=== PATIENT | male | born 1990 | race Two or more races ===

== ENCOUNTER 2016-07-08 06:12 | Emergency (ER) | payer MEDICAID ==
[~2016-07-08] VITALS: Ht 182.9 cm; Wt 86.2 kg
[2016-07-08 06:16] VITALS: BP 108/68
[2016-07-08] MEDS ORDERED: KETOROLAC TROMETH 60MG/2ML VIAL IM ONE (07:30)
== END 2016-07-08 07:40 | disposition home or self-care (01) ==
LOC: ER 06:13
DX: S83.8X1A Sprain of other specified parts of right knee, initial encounter (principal); T25.231A Burn of second degree of right toe(s) (nail), initial encounter; F17.210 Nicotine dependence, cigarettes, uncomplicated; F12.10 Cannabis abuse, uncomplicated; F15.10 Other stimulant abuse, uncomplicated; Z59.0 Homelessness; X58.XXXA Exposure to other specified factors, initial encounter; Y93.89 Activity, other specified; Y99.8 Other external cause status; Y92.89 Other specified places as the place of occurrence of the external cause
CPT/HCPCS: 96372; 99283; J1885

== ENCOUNTER 2016-09-21 09:11 | Emergency (ER) | payer MEDICAID ==
[~2016-09-21] VITALS: Ht 182.9 cm; Wt 77.1 kg
[2016-09-21 09:16] VITALS: BP 134/76
== END 2016-09-21 10:52 | disposition home or self-care (01) ==
LOC: ER 09:11
DX: S90.111A Contusion of right great toe without damage to nail, initial encounter (principal); F12.10 Cannabis abuse, uncomplicated; F15.10 Other stimulant abuse, uncomplicated; F17.210 Nicotine dependence, cigarettes, uncomplicated; Z59.0 Homelessness; X58.XXXA Exposure to other specified factors, initial encounter; Y93.89 Activity, other specified; Y99.8 Other external cause status; Y92.89 Other specified places as the place of occurrence of the external cause

== ENCOUNTER 2016-10-25 03:05 | Emergency (ER) | payer MEDICAID ==
[~2016-10-25] VITALS: Ht 182.9 cm; Wt 81.6 kg
[2016-10-25 07:51] LABS: Basophils # (auto) 0 uL; Basophils % (auto) 0.5 % (0.0-2.0); CONDITION Y; Eosinophils # (auto) 0 uL; Eosinophils % (auto) 0.3 % (0.0-7.0); Hematocrit 40.2 % (41.0-53.0); Hemoglobin 14.1 g/dL (13.5-17.5); Lymphocytes # (auto) 1.9 uL; Lymphocytes % (auto) 22.5 % (10.0-50.0); Mean Corpuscular Hemoglobin 30.6 pg (28.0-32.0); Mean Corpuscular Volume 87.5 fL (80.0-100.0); Mean Platelet Volume 7.6 fL (7.4-10.4); Monocytes # (auto) 0.5 uL; Monocytes % (auto) 6.5 % (0.0-12.0); Neutrophils # (auto) 5.8 uL; Neutrophils % (auto) 70.2 % (37.0-80.0); Platelet Count (auto) 344 10^3/uL (140-450); Red Cell Distribution Width 13.6 % (11.6-16.0); White Blood Cell 8.3 10^3/uL (4.4-10.8)
[2016-10-25 08:07] LABS: Albumin 4.2 g/dL (3.4-5.0); Anion Gap 8 (5-15); Aspartate Aminotransferase 16 U/L (15-37); BUN/Creatinine Ratio 16.9; Blood Urea Nitrogen 13 mg/dL (7-18); Calcium 8.9 mg/dL (8.5-10.1); Carbon Dioxide 26 mmol/L (21-32); Chloride 106 mmol/L (98-107); GFR African American 157 mL/min; GFR Non-African American 130 mL/min; Glucose 87 mg/dL (74-106); Potassium 3.9 mmol/L (3.5-5.1); Sodium 140 mmol/L (136-145)
[2016-10-25 08:21] LABS: Alkaline Phosphatase 79 U/L (45-117); Bilirubin, Total 0.5 mg/dL (0.2-1.0); Total Protein 7.5 g/dL (6.4-8.2)
[2016-10-25 09:50] VITALS: BP 123/76
== END 2016-10-25 09:28 | disposition home or self-care (01) ==
LOC: ER 03:05
DX: R42 Dizziness and giddiness (principal); R07.9 Chest pain, unspecified; Z72.820 Sleep deprivation; R51 Headache; Z59.0 Homelessness
CPT/HCPCS: 36415; 80053; 84484; 85025

== ENCOUNTER 2016-10-27 13:49 | Emergency (ER) | payer MEDICAID ==
[~2016-10-27] VITALS: Ht 185.4 cm; Wt 77.1 kg
[2016-10-27 14:09] VITALS: BP 105/70
== END 2016-10-27 15:45 | disposition left against medical advice (07) ==
LOC: EDBD 13:49 → ER 13:53
DX: M79.672 Pain in left foot (principal); M79.671 Pain in right foot; Z53.21 Procedure and treatment not carried out due to patient leaving prior to being seen by health care provider

== ENCOUNTER 2016-10-27 21:10 | Emergency (ER) | payer MEDICAID ==
[~2016-10-27] VITALS: Ht 182.9 cm; Wt 81.6 kg
[2016-10-27 21:22] VITALS: BP 121/77
[2016-10-28] MEDS ORDERED: LEVOFLOXACIN 250 MG TAB PO ONE (09:45)
== END 2016-10-28 11:19 | disposition home or self-care (01) ==
LOC: ER 21:10
DX: L03.115 Cellulitis of right lower limb (principal); Z59.0 Homelessness; F41.9 Anxiety disorder, unspecified; F20.9 Schizophrenia, unspecified; F15.10 Other stimulant abuse, uncomplicated; F32.9 Major depressive disorder, single episode, unspecified; F12.10 Cannabis abuse, uncomplicated

== ENCOUNTER 2016-10-30 09:04 | Emergency (ER) | payer MEDICAID ==
[~2016-10-30] VITALS: Ht 182.9 cm; Wt 78.9 kg
[2016-10-30 09:16] VITALS: BP 139/85
[2016-10-30] MEDS ORDERED: KETOROLAC TROMETH 60MG/2ML VIAL IM ONE (09:45)
[2016-10-30] MEDS ORDERED: cefTRIAXone SOD 1,000 MG VL IM ONE (09:45)
== END 2016-10-30 10:22 | disposition home or self-care (01) ==
LOC: ER 09:04
DX: S90.822A Blister (nonthermal), left foot, initial encounter (principal); S90.821A Blister (nonthermal), right foot, initial encounter; F17.210 Nicotine dependence, cigarettes, uncomplicated; G89.29 Other chronic pain; Z59.0 Homelessness; X58.XXXA Exposure to other specified factors, initial encounter; Y93.89 Activity, other specified; Y92.89 Other specified places as the place of occurrence of the external cause; Y99.8 Other external cause status
CPT/HCPCS: 96372; 99283; J0696; J1885

== ENCOUNTER 2016-11-03 14:37 | Emergency (ER) | payer MEDICAID ==
[~2016-11-03] VITALS: Ht 177.8 cm; Wt 72.6 kg
[2016-11-03] MEDS ORDERED: SODIUM CHLORIDE 0.9% 1,000 ML IV ONE (15:50)
[2016-11-03] MEDS ORDERED: NEOMYCIN-BACITRACIN-POLYM UNITDOSE PKG TOP OINT TOP ONE (16:00)
[2016-11-03] MEDS ORDERED: LIDOCAINE 1% HCL (LOCAL ANESTH.) INJ 20ML MDV ID ONE (16:00)
[2016-11-03] MEDS ORDERED: KETAMINE HCL 0 ML ONE (16:04)
[2016-11-03] MEDS ORDERED: LORazepam 2MG/ML-1ML VIAL IV ONE (16:15)
[2016-11-03] MEDS ORDERED: HALOPERIDOL LACTATE 5 MG/ML INJ VIAL IM ONE (16:15)
[2016-11-03] MEDS ORDERED: diphenhdrAMINE HCL 50 MG/1 ML VL IV ONE (16:15)
[2016-11-03 16:26] LABS: Basophils # (auto) 0.1 uL; Basophils % (auto) 0.6 % (0.0-2.0); Eosinophils # (auto) 0 uL; Eosinophils % (auto) 0.2 % (0.0-7.0); Hematocrit 42.6 % (41.0-53.0); Hemoglobin 14.7 g/dL (13.5-17.5); Lymphocytes # (auto) 1.9 uL; Lymphocytes % (auto) 21.6 % (10.0-50.0); Mean Corpuscular Hemoglobin 30.2 pg (28.0-32.0); Mean Corpuscular Hgb Conc. 34.6 g/dL (32.0-36.0); Mean Corpuscular Volume 87.3 fL (80.0-100.0); Mean Platelet Volume 7.2 fL (6.9-10.8); Monocytes # (auto) 0.4 uL; Neutrophils # (auto) 6.4 uL; Neutrophils % (auto) 72.6 % (37.0-80.0); Nucleated Red Blood Cells % 0.1 %; Platelet Count (auto) 341 10^3/uL (140-450); Red Cell Distribution Width 13.6 % (11.8-14.3); White Blood Cell 8.8 10^3/uL (4.4-10.8)
[2016-11-03 16:54] LABS: Albumin 4.3 g/dL (3.4-5.0); BUN/Creatinine Ratio 11.1; Bilirubin, Total 0.3 mg/dL (0.2-1.0); Calcium 8.9 mg/dL (8.5-10.1); Potassium 3.4 mmol/L (3.5-5.1); Total Protein 8.4 g/dL (6.4-8.2)
[2016-11-03 20:22] VITALS: BP 110/72
== END 2016-11-03 20:25 ==
LOC: EDUNIT# 14:37 → EDBD 14:37 → ER 14:37
DX: S51.811A Laceration without foreign body of right forearm, initial encounter (principal); F10.129 Alcohol abuse with intoxication, unspecified; F41.9 Anxiety disorder, unspecified; Y90.8 Blood alcohol level of 240 mg/100 ml or more; Z59.0 Homelessness; W25.XXXA Contact with sharp glass, initial encounter; Y93.89 Activity, other specified; Y92.89 Other specified places as the place of occurrence of the external cause; Y99.8 Other external cause status
CPT/HCPCS: 12005; 36415; 80053; 80307; 80320; 85025; 94761; 96361; 96372; 96374; 96375; 99284; J1200; J1630; J2001; J2060; J7030; A4565

== ENCOUNTER 2018-09-07 10:15 | Emergency (ER) | payer MEDICAID, OTHER ==
[~2018-09-07] VITALS: Ht 182.9 cm; Wt 97.5 kg
[2018-09-07 10:56] VITALS: BP 124/68
== END 2018-09-07 11:39 | disposition home or self-care (01) ==
LOC: ER 10:15
DX: H10.32 Unspecified acute conjunctivitis, left eye (principal); F15.90 Other stimulant use, unspecified, uncomplicated

== ENCOUNTER 2019-01-14 01:36 | Emergency (ER) | payer SELFPAY ==
[~2019-01-14] VITALS: Ht 182.9 cm; Wt 96.2 kg
[2019-01-14 03:02] VITALS: BP 119/81
== END 2019-01-14 03:28 | disposition home or self-care (01) ==
LOC: ER 01:37
DX: J03.80 Acute tonsillitis due to other specified organisms (principal); B96.89 Other specified bacterial agents as the cause of diseases classified elsewhere
CPT/HCPCS: 71046

== ENCOUNTER 2019-01-15 00:42 | Emergency (ER) | payer SELFPAY ==
[~2019-01-15] VITALS: Ht 180.3 cm; Wt 81.6 kg
[2019-01-15 00:52] LABS: Urine WBC None Seen /hpf (0 - 3)
[2019-01-15 01:02] LABS: Urine Bacteria NONE SEEN /hpf (None Seen); Urine Blood Negative /uL (Negative); Urine Specific Gravity 1.006 (1.001-1.035)
[2019-01-15 01:25] LABS: Alcohol, Urine < 3.0 mg/dL (0-5); Amphetamine Screen, Urine NEGATIVE (NEGATIVE); Barbiturate Scree,Urine NEGATIVE (NEGATIVE); Benzodiazephine Screen, Urine NEGATIVE (NEGATIVE); Cannabinoid Screen, Urine NEGATIVE (NEGATIVE); Cocaine Screen, Urine NEGATIVE (NEGATIVE); Opiate Scree,Urine NEGATIVE (NEGATIVE); Phencyclidine Screen, Urine NEGATIVE (NEGATIVE)
[2019-01-15 01:28] LABS: Basophils # (auto) 0.1 uL; Basophils % (auto) 0.5 % (0.0-2.0); Eosinophils # (auto) 0 uL; Eosinophils % (auto) 0.4 % (0.0-7.0); Hematocrit 38.6 % (41.0-53.0); Hemoglobin 13.2 g/dL (13.5-17.5); Lymphocytes # (auto) 2.2 uL; Lymphocytes % (auto) 19.7 % (10.0-50.0); Mean Corpuscular Hemoglobin 29.9 pg (28.0-32.0); Mean Corpuscular Hgb Conc. 34.2 g/dL (32.0-36.0); Mean Corpuscular Volume 87.5 fL (80.0-100.0); Monocytes # (auto) 1.1 uL; Monocytes % (auto) 9.7 % (0.0-12.0); Neutrophils # (auto) 7.8 uL; Neutrophils % (auto) 69.7 % (37.0-80.0); Platelet Count (auto) 388 10^3/uL (140-450); Red Blood Cells 4.41 10^6/uL (4.5-5.90); Red Cell Distribution Width 13.7 % (11.8-14.3); White Blood Cell 11.2 10^3/uL (4.4-10.8)
[2019-01-15 01:42] LABS: Partial Thromboplastin Time 30.2 sec (23.64-32.05)
[2019-01-15 01:47] LABS: Albumin 4.4 g/dL (3.4-5.0); BUN/Creatinine Ratio 14.3; Calcium 8.8 mg/dL (8.5-10.1); Potassium 3.6 mmol/L (3.5-5.1)
[2019-01-15 01:50] LABS: Bilirubin, Total 0.4 mg/dL (0.2-1.0); Total Protein 8.8 g/dL (6.4-8.2)
[2019-01-15 04:06] VITALS: BP 115/73
== END 2019-01-15 04:20 | disposition home or self-care (01) ==
LOC: EDBD 00:42 → ER 00:44
DX: F60.0 Paranoid personality disorder (principal); F12.10 Cannabis abuse, uncomplicated; F15.10 Other stimulant abuse, uncomplicated; F17.210 Nicotine dependence, cigarettes, uncomplicated
CPT/HCPCS: 36415; 71045; 80053; 80307; 81001; 85025; 85610; 85730

== ENCOUNTER 2020-06-03 08:50 | Emergency (ER) | payer OTHER ==
[~2020-06-03] VITALS: Ht 182.9 cm; Wt 102.1 kg
[2020-06-03 10:36] LABS: Basophils # (auto) 0.1 10 ^3/uL (0-0.2); Basophils % (auto) 0.6 % (0.0-2.0); Eosinophils # (auto) 0 10 ^3/uL (0-0.8); Eosinophils % (auto) 0.3 % (0.0-7.0); Hematocrit 33.7 % (41.0-53.0); Hemoglobin 11.8 g/dL (13.5-17.5); Lymphocytes # (auto) 1.8 10 ^3/uL (0.4-5.4); Lymphocytes % (auto) 11.9 % (10.0-50.0); Mean Corpuscular Hemoglobin 29.2 pg (28.0-32.0); Mean Corpuscular Hgb Conc. 34.9 g/dL (32.0-36.0); Mean Corpuscular Volume 83.5 fL (80.0-100.0); Neutrophils # (auto) 11.8 10 ^3/uL (1.6-8.6); Neutrophils % (auto) 80.2 % (37.0-80.0); Platelet Count (auto) 238 10^3/uL (140-450); Red Blood Cells 4.03 10^6/uL (4.5-5.90); Red Cell Distribution Width 13.2 % (11.8-14.3); White Blood Cell 14.7 10^3/uL (4.4-10.8)
[2020-06-03 10:53] LABS: BUN/Creatinine Ratio 15.6; Calcium 8.8 mg/dL (8.5-10.1)
[2020-06-03] MEDS ORDERED: SODIUM CHLORIDE 0.9% 1,000 ML IVB ONE (12:30)
[2020-06-03 13:03] LABS: Alanine Aminotransferase 32 U/L (16-61); Albumin 3.3 g/dL (3.4-5.0); Anion Gap 8 (5-15); Blood Alcohol < 3.0 mg/dL (0-5); Blood Urea Nitrogen 9 mg/dL (7-18); Calcium 8.6 mg/dL (8.5-10.1); Carbon Dioxide 25 mmol/L (21-32); Chloride 103 mmol/L (98-107); Glucose 83 mg/dL (74-106); Magnesium 2.6 mg/dL (1.6-2.6); Potassium 3.1 mmol/L (3.5-5.1); Sodium 136 mmol/L (136-145)
[2020-06-03 13:06] LABS: Alkaline Phosphatase 77 U/L (45-117); Aspartate Aminotransferase 28 U/L (15-37); BUN/Creatinine Ratio 13.8; Bilirubin, Total 1.5 mg/dL (0.2-1.0); GFR African American 187 mL/min; GFR Non-African American 154 mL/min; Total Protein 7.2 g/dL (6.4-8.2)
[2020-06-03] MEDS ORDERED: cefTRIAXone 1GM/50ML D5W 50 ML IV ONE (15:15)
[2020-06-03] MEDS ORDERED: POTASSIUM EFFERVESENT TAB 25 MEQ PO ONE (15:15)
[2020-06-03 19:09] LABS: Alcohol, Urine < 3.0 mg/dL (0-10); Barbiturate Scree,Urine NEGATIVE (NEGATIVE); Benzodiazephine Screen, Urine NEGATIVE (NEGATIVE); Cannabinoid Screen, Urine POSITIVE (NEGATIVE); Cocaine Screen, Urine NEGATIVE (NEGATIVE); Opiate Scree,Urine NEGATIVE (NEGATIVE); Phencyclidine Screen, Urine NEGATIVE (NEGATIVE)
[2020-06-03 19:14] LABS: Urine Bacteria NONE SEEN /hpf (None Seen); Urine Blood Negative /uL (Negative); Urine Specific Gravity 1.017 (1.001-1.035); Urine WBC 1 /hpf (0 - 3)
[2020-06-03 19:16] LABS: Amphetamine Screen, Urine POSITIVE (NEGATIVE)
[2020-06-04] MEDS ORDERED: OLANZapine 5 MG TAB PO ONE (01:30)
[2020-06-04] MEDS ORDERED: IBUPROFEN 400 MG TAB PO ONE (12:15)
[2020-06-04] MEDS ORDERED: LORazepam 2MG/ML-1ML VIAL ONE (17:04)
[2020-06-04] MEDS ORDERED: diphenhdrAMINE HCL 50 MG/1 ML VL ONE (17:04)
[2020-06-04] MEDS ORDERED: HALOPERIDOL LACTATE 5 MG/ML INJ VIAL ONE (17:05)
[2020-06-04] MEDS ORDERED: LORazepam 2MG/ML-1ML VIAL IV ONE (17:15)
[2020-06-04] MEDS ORDERED: diphenhdrAMINE HCL 50 MG/1 ML VL IV ONE (17:15)
[2020-06-04] MEDS ORDERED: HALOPERIDOL LACTATE 5 MG/ML INJ VIAL IM ONE (17:15)
[2020-06-05] MEDS ORDERED: SERT-160 PO (11:36)
[2020-06-05] MEDS ORDERED: ARIP1TAB63 PO (11:36)
[2020-06-05] MEDS ORDERED: HYDR50CA2 PO (11:36)
[2020-06-05] MEDS ORDERED: DIVA1TAB59 PO (11:36)
[2020-06-05] MEDS: ACETAMINOPHEN 325 MG TAB PO PRN (12:48)
[2020-06-05] MEDS: hydrOXYzine 25 MG TAB or CAP PO SCH (23:24)
[2020-06-06] MEDS ORDERED: ACETAMINOPHEN 500 MG TAB PO ONE (03:00)
[2020-06-06] MEDS: Aripiprazole 30 MG PO SCH (07:00)
[2020-06-06] MEDS: SERTRALINE HCL 50 MG TAB PO SCH (11:54)
[2020-06-06] MEDS: hydrOXYzine 25 MG TAB or CAP PO SCH ×2 (11:54→23:54)
[2020-06-06] MEDS: ACETAMINOPHEN 325 MG TAB PO PRN (11:55)
[2020-06-06] MEDS ORDERED: LORazepam 2MG/ML-1ML VIAL ONE (15:41)
[2020-06-06] MEDS ORDERED: LORazepam 2MG/ML-1ML VIAL IM ONE (15:45)
[2020-06-06] MEDS ORDERED: hydrOXYzine 25 MG TAB or CAP ONE (23:28)
[2020-06-07 06:13] VITALS: BP 114/69
[2020-06-07] MEDS: SERTRALINE HCL 50 MG TAB PO SCH (10:00)
[2020-06-07] MEDS: hydrOXYzine 25 MG TAB or CAP PO SCH (10:00)
[2020-06-07] MEDS: Aripiprazole 30 MG PO SCH (10:16)
[2020-06-07] MEDS ORDERED: SERTRALINE HCL 50 MG TAB ONE (10:30)
[2020-06-07] MEDS ORDERED: hydrOXYzine 25 MG TAB or CAP ONE (10:30)
== END 2020-06-07 10:50 | disposition home or self-care (01) ==
LOC: ER 08:50 → EDBD 08:50 → ER 10:50
DX: R41.82 Altered mental status, unspecified (principal); G92 Toxic encephalopathy; F20.9 Schizophrenia, unspecified; L03.116 Cellulitis of left lower limb; E87.6 Hypokalemia; E46 Unspecified protein-calorie malnutrition; Z20.822 Contact with and (suspected) exposure to COVID-19
CPT/HCPCS: 36415; 70450; 73700; 80048; 80053; 80307; 80320; 81001; 83735; 85025; 87040; 87426; 93005; 96361; 96365; 96372; 96375; 99285; J0696; J1200; J1630; J2060

== ENCOUNTER 2020-06-16 11:12 | Emergency (ER) | payer OTHER ==
[~2020-06-16] VITALS: Ht 182.9 cm; Wt 99.8 kg
[~2020-06-16 11:12] MED LIST: ARIP1TAB63 PO; DIVA1TAB59 PO; HYDR50CA2 PO; SERT-160 PO
[2020-06-16 11:20] VITALS: BP 141/71
[2020-06-16] MEDS ORDERED: ACETAMINOPHEN 500 MG TAB PO ONE (12:45)
== END 2020-06-16 13:27 | disposition home or self-care (01) ==
LOC: EDBD 11:12 → ER 11:12
DX: J06.9 Acute upper respiratory infection, unspecified (principal); B35.3 Tinea pedis; F17.210 Nicotine dependence, cigarettes, uncomplicated; Z79.899 Other long term (current) drug therapy
CPT/HCPCS: 71046

== ENCOUNTER 2020-08-07 16:38 | Emergency (ER) | payer OTHER ==
[~2020-08-07] VITALS: Ht 177.8 cm; Wt 68.0 kg
[2020-08-07 17:49] LABS: Basophils # (auto) 0.1 10 ^3/uL (0-0.2); Basophils % (auto) 0.7 % (0.0-2.0); Eosinophils # (auto) 0 10 ^3/uL (0-0.8); Eosinophils % (auto) 0.4 % (0.0-7.0); Hematocrit 37.4 % (41.0-53.0); Lymphocytes # (auto) 3.1 10 ^3/uL (0.4-5.4); Lymphocytes % (auto) 36.7 % (10.0-50.0); Mean Corpuscular Hemoglobin 29.8 pg (28.0-32.0); Mean Corpuscular Hgb Conc. 34.9 g/dL (32.0-36.0); Mean Corpuscular Volume 85.4 fL (80.0-100.0); Monocytes % (auto) 11.5 % (0.0-12.0); Neutrophils # (auto) 4.3 10 ^3/uL (1.6-8.6); Neutrophils % (auto) 50.7 % (37.0-80.0); Platelet Count (auto) 387 10^3/uL (140-450); Red Blood Cells 4.37 10^6/uL (4.5-5.90); Red Cell Distribution Width 13.4 % (11.8-14.3); White Blood Cell 8.5 10^3/uL (4.4-10.8)
[2020-08-07 18:02] LABS: Alanine Aminotransferase 27 U/L (16-61); Albumin 3.8 g/dL (3.4-5.0); Anion Gap 8 (5-15); BUN/Creatinine Ratio 18.3; Blood Urea Nitrogen 17 mg/dL (7-18); Calcium 8.6 mg/dL (8.5-10.1); Carbon Dioxide 26 mmol/L (21-32); Chloride 105 mmol/L (98-107); GFR African American 124 mL/min; GFR Non-African American 102 mL/min; Glucose 99 mg/dL (74-106); Potassium 3.7 mmol/L (3.5-5.1); Sodium 139 mmol/L (136-145)
[2020-08-07 18:05] LABS: Alkaline Phosphatase 87 U/L (45-117); Aspartate Aminotransferase 14 U/L (15-37); Bilirubin, Total 0.3 mg/dL (0.2-1.0); Total Protein 8.2 g/dL (6.4-8.2)
[2020-08-07 18:11] LABS: Salicylate < 1.7 mg/dL (2.8-20.0)
[2020-08-07] MEDS ORDERED: SODIUM CHLORIDE 0.9% 1,000 ML IVB ONE (18:15)
[2020-08-07 18:42] LABS: Acetaminophen < 2.0 ug/mL (10-30)
[2020-08-07 18:44] LABS: Blood Alcohol < 3.0 mg/dL (0-5)
[2020-08-07 18:58] LABS: Urine Bacteria NONE SEEN /hpf (None Seen); Urine Blood Negative /uL (Negative); Urine Mucus FEW (None Seen); Urine Specific Gravity 1.034 (1.001-1.035); Urine WBC 1 /hpf (0 - 3)
[2020-08-07 19:11] LABS: Alcohol, Urine < 3.0 mg/dL (0-10); Amphetamine Screen, Urine POSITIVE (NEGATIVE); Barbiturate Scree,Urine NEGATIVE (NEGATIVE); Benzodiazephine Screen, Urine NEGATIVE (NEGATIVE); Cannabinoid Screen, Urine POSITIVE (NEGATIVE); Cocaine Screen, Urine NEGATIVE (NEGATIVE); Opiate Scree,Urine NEGATIVE (NEGATIVE); Phencyclidine Screen, Urine NEGATIVE (NEGATIVE)
[2020-08-08 06:00] VITALS: BP 106/67
== END 2020-08-08 10:36 | disposition still patient (30) ==
LOC: EDBD 16:38 → ER 16:38
DX: T50.902A Poisoning by unspecified drugs, medicaments and biological substances, intentional self-harm, initial encounter (principal); F32.9 Major depressive disorder, single episode, unspecified; F17.210 Nicotine dependence, cigarettes, uncomplicated; Z79.899 Other long term (current) drug therapy; X83.8XXA Intentional self-harm by other specified means, initial encounter; Y93.89 Activity, other specified; Y92.89 Other specified places as the place of occurrence of the external cause; Y99.8 Other external cause status
CPT/HCPCS: 36415; 70450; 71045; 80053; 80307; 80320; 80329; 81001; 82962; 83735; 85025; 93005; 96360; 96361; 99285; J7030

== ENCOUNTER 2022-01-23 19:10 | Emergency (ER) | payer OTHER ==
[~2022-01-23] VITALS: Ht 177.8 cm; Wt 75.0 kg
[2022-01-23 19:55] VITALS: BP 126/88
== END 2022-01-23 19:50 | disposition left against medical advice (07) ==
LOC: EDBD 19:10 → ER 19:14
DX: R45.851 Suicidal ideations (principal); F32.9 Major depressive disorder, single episode, unspecified; F41.9 Anxiety disorder, unspecified; F20.9 Schizophrenia, unspecified; F17.210 Nicotine dependence, cigarettes, uncomplicated; F15.10 Other stimulant abuse, uncomplicated; F22 Delusional disorders; Z59.00 Homelessness unspecified